=== PATIENT | male | born 1985 | race Hispanic/Latino ===

== ENCOUNTER 2017-08-10 07:54 | Emergency (ER) | payer OTHER ==
[~2017-08-10] VITALS: Ht 154.9 cm; Wt 81.7 kg
[2017-08-10] MEDS ORDERED: BENADRYL25 MG PO (08:30)
== END 2017-08-10 09:24 | disposition home or self-care (01) ==
LOC: ED 07:54
DX: L50.9 Urticaria, unspecified (principal)
CPT/HCPCS: 99283; Q0163

== ENCOUNTER 2019-09-23 08:27 | Emergency (ER) | payer SELFPAY ==
[~2019-09-23] VITALS: Ht 154.9 cm; Wt 81.7 kg
--- OUTSIDE RECORDS SUMMARY | ~2019-09-23 | XMS | Encounter Summary ---
Demographics + + + | Address | [address] | | | [place] [address] | + + + | Home Phone | | + + + | Preferred Language | Unknown | + + + | Marital Status | | + + + | Worship Affiliation | 1027 | + + + | Race | Unknown | + + + | Ethnic Group | Unknown | + + + Author + + + | Author | [facility] | | | and [place] | + + + | Organization | [facility] | | | and [place] | + + + | Address | Unknown | + + + | Phone | Unavailable | + + + Support + + +---------+ + | Name | Relationship | Address | Phone | + + +---------+ + | Flor Young | ECON | Unknown | | + + +---------+ + Care Team Providers + +------+ + | Care Limited Radiology Technician Name | Role | Phone | + +------+ + | Janice Marshall | PCP | | + +------+ + Encounter Details +--------+ + + + + | Date | Type | Department | Care Team | Description | +--------+ + + + + | 07/24/ | Orders Only | [facility] | Conversion | | | 2018 | | CONVERSION [address] | Transaction, | | | | | [address] | Provider Unknown | | | | | [place], [place] | [phone] | | | | | [address] | | | | | | [phone] | | | +--------+ + + + + Social History + +-------+ +--------+------+ | Tobacco Use | Types | Packs/Day | Years | Date | | | | | Used | | + +-------+ +--------+------+ | Never Assessed | | | | | + +-------+ +--------+------+ + + + | Sex Assigned at | Date Recorded | | | | + + + | Not on file | | + + + + + + + | Job Start Date | Occupation | Industry | + + + + | Not on file | Not on file | Not on file | + + + + + + + + | Travel History | Travel Start | Travel End | + + + + + + | No recent travel history available. | + + documented as of this encounter Plan of Treatment Not on filedocumented as of this encounter Visit Diagnoses Not on filedocumented in this encounter"
--- OUTSIDE RECORDS SUMMARY | ~2019-09-23 | XMS | Encounter Summary ---
Demographics + + + | Address | [address] | | | [place] [address] | + + + | Home Phone | | + + + | Preferred Language | Unknown | + + + | Marital Status | | + + + | Congregation Affiliation | 1027 | + + + | Race | Unknown | + + + | Ethnic Group | Unknown | + + + Author + + + | Author | [facility] | | | and [place] | + + + | Organization | [facility] | | [...] Team Providers + +------+ + | Care Channeling Machine Runner Name | Role | Phone | + [...] Provider Unknown | | | | | [place], [place] | [phone] | | | | | [phone] | | | | | | [phone] | | | +--------+ + + + [...]
--- OUTSIDE RECORDS SUMMARY | ~2019-09-23 | XMS | Clinical Summary ---
Demographics + + + | Address | [address] | | | [place] [address] | + + + | Home Phone | | + + + | Preferred Language | Unknown | + + + | Marital Status | | + + + | Evangelical Affiliation | 1027 | + + + | Race | Unknown | + + + | Ethnic Group | Unknown | + + + Author + + + | Author | [facility] (Historical as of | | | 04-24-19) | + + + | Organization | [facility] (Historical as of | | | 04-24-19) | + + + | Address | Unknown | + + + | Phone | Unavailable | + + + Support + + +---------+ + | Name | Relationship | Address | Phone | + + +---------+ + | YoungFlor | ECON | Unknown | | + + +---------+ + Care Team Providers + +------+ + | Care Motion Pictures Cartoonist Name | Role | Phone | + +------+ + | Janice Marshall PA-C | PP | | + +------+ + Allergies + + + + + + | Active Allergy | Reactions | Severity | Noted | Comments | | | | | Date | | + + + + + + | Diclofenac | Hives, Rash | High | 07/29/20 | | | | | | 18 | | + + + + + + Current Medications + + +-------+---------+------+------+-------+ | Prescription | Sig. | Disp. | Refills | Star | End | Statu | | | | | | t | Date | s | | | | | | Date | | | + + +-------+---------+------+------+-------+ | triamcinolone | Apply topically 2 | | | | | Activ | | (KENALOG) 0.1 % | (two) times daily. | | | | | e | | cream | | | | | | | + + +-------+---------+------+------+-------+ | fluticasone | 1 spray by Each Nare | | | | | Activ | | (FLONASE) 50 MCG/ACT | route daily. | | | | | e | | nasal | | | | | | | + + +-------+---------+------+------+-------+ | betamethasone | Apply topically 2 | | | | | Activ | | dipropionate | (two) times daily. | | | | | e | | (DIPROLENE) 0.05 % | | | | | | | | cream | | | | | | | + + +-------+---------+------+------+-------+ | Meloxicam (MOBIC | Take 1 tablet by | | | | | Activ | | PO) | mouth daily. 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 | + + + | Psoriasis | 07/24/2018 | + + + Family History + + +------+ + | Medical History | Relation | Name | Comments | + + +------+ + | Diabetes type II | Father | | | + + +------+ + | Hypertension | Father | | | + + +------+ + | Hypothyroidism | Father | | | + + +------+ + | Diabetes type II | Mother | | | + + +------+ + + +------+--------+ + | Relation | Name | Status | Comments | + +------+--------+ + | Father | | | | + +------+--------+ + | Mother | | | | + +------+--------+ + Social History + +-------+ +--------+------+ | Tobacco Use | Types | Packs/Day | Years | Date | | | | | Used | | + +-------+ +--------+------+ | Never Assessed | | | | | + +-------+ +--------+------+ + + +---------+ + | Alcohol Use | Drinks/We | oz/Week | Comments | | | ek | | | + + +---------+ + | No | | | | + + +---------+ + + + + | Sex Assigned at | Date Recorded | | | | + + + | Not on file | | + + + Last Filed Vital Signs + + + + | Vital Sign | Reading | Time Taken | + + + + | Blood Pressure | 110/72 | 07/29/2018 4:03 PM PST | + + + + | Pulse | 92 | 07/29/2018 4:03 PM PST | + + + + | Temperature | 37.2 C (99 F) | 07/29/2018 4:03 PM PST | + + + + | Respiratory Rate | - | - | + + + + | Oxygen Saturation | - | - | + + + + | Inhaled Oxygen | - | - | | Concentration | | | + + + + | Weight | 80.7 kg (178 lb) | 07/29/2018 4:03 PM PST | + + + + | Height | 157.5 cm (5' 2") | 07/29/2018 4:03 PM PST | + + + + | Body Mass Index | 32.56 | 07/29/2018 4:03 PM PST | + + + + Plan of Treatment + + + + + | Health Maintenance | Due Date | Last Done | Comments | + + + + + | Vaccine: | | | | | Dtap/Tdap/Td (1 - | 2 | | | | Tdap) | | | | + + + + + | Vaccine: Influenza | | | | | (#1) | 9 | | | + + + + + Results Not on filefrom Last 3 Months Insurance +-------+--------+ +------+-------+---------+ | Payer | Benefi | Subscriber | Type | Phone | Address | | | t Plan | ID | | | | | | / | | | | | | | Group | | | | | +-------+--------+ +------+-------+---------+ | AETNA | AETNA | [id number] | | | | | | - [place] | | | | | +-------+--------+ +------+-------+---------+ + +--------+ +--------+ + + | Guarantor Name | Accoun | Relation to | Date | Phone | Billing Address | | | t Type | Patient | of | | | | | | | | | | + +--------+ +--------+ + + | HECTOR | Person | Self | [birth year] | Work: | [address] | | [place] | [place] | | 1984 | [phone] | [place] | | | [place] | | | [phone]: | [phone] | | | | | | | | | | | | | [phone] | | | | | | | 1351 | | + +--------+ +--------+ + +
--- OUTSIDE RECORDS SUMMARY | ~2019-09-23 | XMS | Clinical Summary ---
Demographics + + + | Address | [address] | | | [place] [address] | + + + | Home Phone | | + + + | Preferred Language | Unknown | + + + | Marital Status | | + + + | Jewish Affiliation | 1027 | + + + | Race | Unknown | + + + | Ethnic Group | Unknown | + + + Author + + + | Author | [facility] [employer] (Historical as of | | | 04-24-19) | + + + | Organization | 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
--- OUTSIDE RECORDS SUMMARY | ~2019-09-23 | XMS | Clinical Summary ---
Demographics + + + | Address | [address] | | | [place] [address] | + + + | Home Phone | | + + + | Preferred Language | Unknown | + + + | Marital Status | | + + + | Uatsdin Affiliation | 1027 | + + + | Race | Unknown | + + + | Ethnic Group | Unknown | + + + Author + + + | Author | [facility] | | | and [place] | + + + | Organization | [facility] | | [...] Team Providers + +------+ + | Care Dock Builder Name | Role | Phone | + +------+ + | Janice Marshall | PCP | | + +------+ + Allergies + + + + + + | Active Allergy | Reactions | Severity | Noted | Comments | | | | | Date | | + + + + + + | Diclofenac | Hives, Rash | High | 07/29/20 | | | | | | 18 | | + + + + + + Medications + + + +---------+------+------+-------+ | Medication | Sig | Dispensed | Refills | Star | End | Statu | | | | | | t | Date | s | | | | | | Date | | | + + + +---------+------+------+-------+ | Meloxicam (MOBIC | Take 1 tablet by | | 0 | 11/2 | | Activ | | PO) | mouth daily. | | | 1/20 | | e | | | | | | 18 | | | + + + +---------+------+------+-------+ | triamcinolone | Apply topically 2 | | 0 | 11/1 | | Activ | | (KENALOG) 0.1% cream | (two) times daily. | | | 6/20 | | e | | | | | | 18 | | | + + + +---------+------+------+-------+ | fluticasone | 1 spray by Each Nare | | 0 | 07/09 | | Activ | | (FLONASE) 50 | route daily. | | | 620 | | e | | mcg/nasal spray | | | | 18 | | | + + + +---------+------+------+-------+ | betamethasone | Apply topically 2 | | 0 | 07/09 | | Activ | | dipropionate 0.05% | (two) times daily. 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 | + + Last Filed Vital Signs + + + + + | Vital Sign | Reading | Time Taken | Comments | + + + + + | Blood Pressure | 110/72 | 07/29/2018 4:04 PM | | | | | PST | | + + + + + | Pulse | 92 | 07/29/2018 4:04 PM | | | | | PST | | + + + + + | Temperature | 37.2 C (99 F) | 07/29/2018 4:04 PM | | | | | PST | | + + + + + | Respiratory Rate | - | - | | + + + + + | Oxygen Saturation | - | - | | + + + + + | Inhaled Oxygen | - | - | | | Concentration | | | | + + + + + | Weight | 80.7 kg (178 lb) | 07/29/2018 4:04 PM | | | | | PST | | + + + + + | Height | 157.5 cm (5' 2") | 07/29/2018 4:04 PM | | | | | PST | | + + + + + | Body Mass Index | 32.56 | 07/29/2018 4:04 PM | | | | | PST | | + + + + + Plan of Treatment + + + + + | Health Maintenance | Due Date | Last Done | Comments | + + + + + | Vaccine: | | | | | Dtap/Tdap/Td (1 - | 4 | | | | Tdap) | | | | + + + + + | Vaccine: Influenza | | | | | (#1) | 9 | | | + + + + + Results Not on filefrom Last 3 Months
--- OUTSIDE RECORDS SUMMARY | ~2019-09-23 | XMS | Clinical Summary ---
Demographics + + + | Address | [address] | | | [place] [address] | + + + | Home Phone | | + + + | Preferred Language | Unknown | + + + | Marital Status | | + + + | Sabianist Affiliation | 1027 | + + + | Race | Unknown | + + + | Ethnic Group | Unknown | + + + Author + + + | Author | [facility] | | | and [place] | + + + | Organization | [facility] | | | and [...] Team Providers + +------+ + | Care Buckle Coverer Name | Role | Phone | + [...]
--- OUTSIDE RECORDS SUMMARY | ~2019-09-23 | XMS | Encounter Summary ---
Demographics + + + | Address | [address] | | | [place] [address] | + + + | Home Phone | | + + + | Preferred Language | Unknown | + + + | Marital Status | | + + + | Adventism Affiliation | 1027 | + + + | Race | Unknown | + + + | Ethnic Group | Unknown | + + + Author + + + | Author | [facility] | | | and [place] | + + + | Organization | [facility] | | | and [...] Team Providers + +------+ + | Care Dental Billing Specialist Name | Role | Phone | + +------+ + | Janice Marshall | PCP | | + +------+ + Encounter Details +--------+ + + + + | Date | Type | Department | Care Team | Description | +--------+ + + + + | 07/29/ | Orders Only | [facility] | Conversion | | | 2018 | | CONVERSION [address]P [address] | Transaction, | | | | | [address] | Provider Unknown | | | | | [place], [place] | [phone] | | | | | [address] | | | | | | [phone] | | | +--------+ + + + [...]
--- OUTSIDE RECORDS SUMMARY | ~2019-09-23 | XMS | Encounter Summary ---
Demographics + + + | Address | [address] | | | [place] [address] | + + + | Home Phone | | + + + | Preferred Language | Unknown | + + + | Marital Status | | + + + | Mormon Affiliation | 1027 | + + + | Race | Unknown | + + + | Ethnic Group | Unknown | + + + Author + + + | Author | [facility] | | | and [place] | + + + | Organization | [facility] | | | and [...] Team Providers + +------+ + | Care Fire Officer Name | Role | Phone | + [...] Provider Unknown | | | | | [place], [place] | [phone] | | | | | [address] | | | | | | [phone] | | | +--------+ + + + [...]
[~2019-09-23 08:27] MED LIST: BENADRYL25 MG PO
[2019-09-23] MEDS ORDERED: ONDANSETRON ODT8 MG PO (08:47)
== END 2019-09-23 09:45 | disposition home or self-care (01) ==
LOC: ED 08:27
DX: J11.1 Influenza due to unidentified influenza virus with other respiratory manifestations (principal); J40 Bronchitis, not specified as acute or chronic; F17.200 Nicotine dependence, unspecified, uncomplicated
CPT/HCPCS: 71046; 94640; 99283-25

== ENCOUNTER 2021-04-09 07:10 | Day surgery (SDC) | payer OTHER ==
[~2021-04-09] VITALS: Ht 154.9 cm; Wt 81.0 kg
[~2021-04-09 07:10] MED LIST changes: +CYCLOBENZAPRINE10 MG PO; +ONDANSETRON ODT8 MG PO; +OSTERA TABLET1 EACH PO; +SM COD LIVER O1 EACH PO; +TYLENOL325 M1 PO; +VIT C-ROSE HIP500 MG PO
[2021-04-09] MEDS ORDERED: HYDROCODON-ACE1 EA11 PO (10:16)
--- NOTE | 2021-04-09 10:42 | NUR ---
04/09/21 1042 Sonal Hernandez 1025 PT ARRIVED IN PACU SLEEPY WITH R ARM IN SLING. 1040 RESTING. REU.
--- NOTE | 2021-04-09 11:18 | NUR ---
PT ARRIVES TO DAY SURGERY ROOM #5. PT TAKING WITH HIS AT THE BEDSIDE. BED RAILS UP, CALL LIGHT PROVIDED.
--- NOTE | 2021-04-09 11:32 | NUR ---
PT REPORTS HE NEEDS TO USE THE RESTROOM. PT AMBULATED TO THE RESTROOM WITH 1 PERSON ASSIST. PT'S STAYED IN THE BATHROOM WITH PT. PT WAS ABLE TO URINATE AND AMBULATED BACK TO BED. SCD'S PLACED BACK ON, CRYOCUFF TO RIGHT SHOULDER WITH GOWN IN BETWEEN SKIN AND CRYOCUFF. PT PROVIDED ICE WATER AND JELL-O PER HIS REQUEST.
--- NOTE | 2021-04-09 12:32 | NUR ---
PATIENT LAYING COMFORTABLE IN BED. PAIN IS 1/10. DENIES NAUSEA. DRESSINGS ARE CLEAN, DRY, AND INTACT. PATINET IS DRINKING WATER. AT BEDSIDE. CALL LIGHT WITHIN REACH.
--- NOTE | 2021-04-09 13:02 | NUR ---
PROVIDED PATIENT WITH DISCHARGE INSTRUCTIONS. PATIENT VERBALIZED UNDERSTANDING AND HAD NO FUTHER QUESTIONS. HIS DRESSING WERE CLEAN, DRY, AND INTACT. PAIN 09/17. PROVIDED WHEELCHIAR RIDE TO FRONT DOOR WHERE HIS WAS WAITING IN HER CAR.
--- NOTE | 2021-04-11 07:10 | OR ---
[facility] [address] [facility] [place] [place] [address] Signed DATE OF OPERATION: 04/09/2021 SURGEON: Sharon Osuna MD PREOPERATIVE DIAGNOSIS: Rotator cuff tear, right shoulder. POSTOPERATIVE DIAGNOSES: 1. Rotator cuff tear, right shoulder. 2. Labral tear, right shoulder. PROCEDURE PERFORMED: Right shoulder arthroscopy with rotator cuff repair. REGIONAL ENGAGEMENT CONSULTANT: Daiana Guajardo PA-C. ANESTHESIA: General. BLOOD LOSS: Minimal. IMPLANTS: 4.75 SwiveLock. BRIEF HISTORY: Tammie is a 36-year-old gentleman with progressive worsening of right shoulder pain after an injury at work. He did not have any instability and no instability was detected on his exam. MRI is consistent with rotator cuff tear. Risks and benefits of operative treatment were discussed with him and he elected to proceed. DESCRIPTION OF PROCEDURE: Once consent was obtained, he was taken to the operating room. After adequate anesthesia, he was placed in a beach chair position. All downside pressure points were well padded. The right shoulder was prepped and draped in a standard sterile fashion. The shoulder was injected with 15 mL 0.25% Marcaine with epinephrine as was the subacromial space. Standard posterior portal was made and the scope was introduced in the shoulder. Electronically Signed By: SHARON OSUNA MD 04/11/21 0710 PATIENT NAME: TAMMIE VELOZ OPERATIVE REPORT DATE OF : 81 REPORT #: [id number] PHYSICIAN: SHARON OSUNA MD PCP: FREDDIE LIMA PAC REPORT IS CONFIDENTIAL AND NOT TO BE RELEASED WITHOUT AUTHORIZATION [facility] [address] [place], [place] [address] Signed ARTHROSCOPIC FINDINGS: The glenohumeral surfaces were intact. The biceps and biceps anchor were intact. The anterior labrum was noted to be torn from the anterior-superior corner to the 4 o'clock position. There appeared to be a large sublabral foramen, but it had torn just above this . There was no instability on exam under anesthesia. The rotator cuff showed a 1 cm tear at the leading edge of the supraspinatus. This was full-thickness as we were able to place both a spinal needle and probe through it. The scope was withdrawn and placed in subacromial space, which showed minimal bursitis. The full-thickness tear was easily identifiable and was not retracted. The tissue was in good shape. Standard diagnostic arthroscopy was undertaken as noted above. The scope was withdrawn and placed in a subacromial space and the free edge of the rotator cuff tear was mobilized and debrided. The underlying bony tuberosity was then debrided and trephined using an ice-pick. The FiberTape was placed in inverted mattress configuration and his bone was fairly firm. So, we did use the pick to place the hole for the implant. The implant was then placed in the shoulder over the fiber tapes and was impacted until it was well seated and the rotator cuff was firmly adherent to the bone. There was excellent bleeding from trephine holes prior to placement of the anchor. We then deployed the anchor and cut the sutures. Vented anchor showed excellent fat and blood from the bone marrow. The scope was then withdrawn. Portals were closed with 3-0 nylon. There was a small venous bleeder from the anterior portal that was cauterized. The wounds were all closed with 3-0 nylon. Wounds were then dressed with Allevyn dressing and OpSite and he was awakened, taken to the recovery room in satisfactory condition. All sponge, needle, and instrument counts were correct. Sharon Osuna MD BA/MODL /[id number] Copies: ~ Electronically Signed By: SHARON OSUNA MD 04/11/21 0710 PATIENT NAME: TAMMIE VELOZ OPERATIVE REPORT DATE OF : 81 REPORT #: [id number] PHYSICIAN: SHARON OSUNA MD PCP: FREDDIE LIMA PAC REPORT IS CONFIDENTIAL AND NOT TO BE RELEASED WITHOUT AUTHORIZATION
[2021-04-30] MEDS ORDERED: ADVIL200 M1 PO (11:06)
[2021-04-30] MEDS ORDERED: CLINDAMYCI300 MG/50 IV (11:07)
== END 2021-04-09 12:55 | disposition home or self-care (01) ==
LOC: DS 07:10
PROVIDERS: ATTEND Specialist
PROC: 0LQ14ZZ Repair Right Shoulder Tendon, Percutaneous Endoscopic Approach (ICD-10-PCS; principal; 2021-04-09 09:30)
DX: M75.121 Complete rotator cuff tear or rupture of right shoulder, not specified as traumatic (principal); S43.431A Superior glenoid labrum lesion of right shoulder, initial encounter; X58.XXXA Exposure to other specified factors, initial encounter; Z87.891 Personal history of nicotine dependence
CPT/HCPCS: 00450; 64415; 76942; C1713; J0690; J1100; J2001; J2250; J2405; J2704; J2795; J3010; J7121

== ENCOUNTER 2021-05-04 07:00 | Day surgery (SDC) | payer OTHER ==
[~2021-05-04] VITALS: Ht 154.9 cm; Wt 79.0 kg
[~2021-05-04 07:00] MED LIST changes: +ADVIL200 M1 PO; +CLINDAMYCI300 MG/50 IV; +HYDROCODON-ACE1 EA11 PO
[2021-05-04] MEDS ORDERED: HYDROCODON-ACE1 EA11 PO (09:34)
--- NOTE | 2021-05-04 09:35 | NUR ---
05/04/21 0935 Anh Hastings 0944 PATIENT ARRIVES TO PACU, UNRESPONSIVE TO PAIN. RESP EVEN AND UNLABORED, MASK AT 6 LITERS.
--- NOTE | 2021-05-07 07:09 | OR ---
[facility] [address] [place], [place] [address] Signed DATE OF OPERATION: 05/04/2021 SURGEON: Sharon Osuna MD PREOPERATIVE DIAGNOSIS: Carpal tunnel syndrome, right. POSTOPERATIVE DIAGNOSIS: Carpal tunnel syndrome, right. PROCEDURE PERFORMED: Right carpal tunnel release. BRICKLAYER HELPER: None. ANESTHESIA: Trudy block. TOURNIQUET TIME: 20 minutes. BRIEF HISTORY: Tammie is a 36-year-old gentleman with progressive worsening of numbness and tingling in both hands, right greater than left. Risks and benefits of operative treatment were discussed with him. He elected to proceed. DESCRIPTION OF PROCEDURE: Once consent was obtained, he was taken to the operating room. After adequate anesthesia, he was placed on operating room table, all downside pressure points were well padded. After establishment of Trudy block, the arm was prepped and draped in a standard sterile fashion. The hand was approached through a 1.5 cm incision in the distal wrist crease, carried through skin and subcutaneous tissue. The palmaris longus was identified, retracted and protected. The transverse carpal ligament was identified under loupe magnification. It was dissected free of overlying soft tissue distally and proximally. It was then released in the midportion and that release was carried proximally and distally again under direct vision. The release was then palpated, found to be completely released. The wound was copiously irrigated with normal saline, closed with 3-0 nylon. It was injected with 7 mL 0.25% Marcaine plain. The wound was then dressed with bacitracin, Adaptic, 4 x 8s, and gauze. He tolerated the procedure well. Electronically Signed By: SHARON OSUNA MD 05/07/21 0709 PATIENT NAME: TAMMIE VELOZ OPERATIVE REPORT DATE OF : 81 REPORT #: [id number] PHYSICIAN: SHARON OSUNA MD PCP: FREDDIE LIMA PAC REPORT IS CONFIDENTIAL AND NOT TO BE RELEASED WITHOUT AUTHORIZATION [address] [address] Signed All sponge, needle, and instrument counts were correct. Sharon Osuna MD BA/BRYCEL /[id number] Copies: ~ Electronically Signed By: SHARON OSUNA MD 05/07/21 0709 PATIENT NAME: TAMMIE VELOZ OPERATIVE REPORT DATE OF : 81 REPORT #: [id number] PHYSICIAN: SHARON OSUNA MD PCP: FREDDIE LIMA PAC REPORT IS CONFIDENTIAL AND NOT TO BE RELEASED WITHOUT AUTHORIZATION
== END 2021-05-04 10:20 | disposition home or self-care (01) ==
LOC: DS 07:00
PROVIDERS: ATTEND Specialist
PROC: 01N50ZZ Release Median Nerve, Open Approach (ICD-10-PCS; principal; 2021-05-04 08:45)
DX: G56.03 Carpal tunnel syndrome, bilateral upper limbs (principal); Z88.6 Allergy status to analgesic agent; Z87.891 Personal history of nicotine dependence
CPT/HCPCS: 01810; 80053; 85025; J0690; J2704; J7121